=== PATIENT | female | born 1965 | race Caucasian/White ===

== ENCOUNTER → 2016-09-06 | Outpatient (CLI) | payer BC ==
[~2016-09-06] MED LIST: CELEXA40 MG PO; CLIMARA0.05 MG TRANS; DELTASONE20 MG PO; PREDNISONE10 MG PO; THERAGRAN-M1 TAB PO; TRANSDERM-SCOP1 EACH TRANS; TRIAMTERENE-HC1 EAC1 PO; VALIUM5 MG PO; ZESTRIL40 MG PO; ZOFRAN4 MG PO
[2016-09-06 17:33] LABS: CREATININE 0.9 mg/dL (0.5-1.1)
== END | disposition disaster alternative care site (69) ==
LOC: GLAB 16:30 → GRAD 17:30
PROVIDERS: Otolaryngology
DX: R42 Dizziness and giddiness (principal); G93.9 Disorder of brain, unspecified
CPT/HCPCS: A9577

== ENCOUNTER 2016-09-09 11:40 | Observation (INO) | payer BC ==
[~2016-09-09] VITALS: Ht 162.6 cm; Wt 119.9 kg
--- NOTE | ~2016-09-09 | DS ---
PATIENT'S NAME: CORIN MAYEN [facility] AGE: 51 Y [address] ROOM: [address] [address] [place] [facility] [place]: 09/09/2016 Discharge Summary DISCHARGE DATE: 09/11/2016 FAMILY PHYSICIAN: Tomy Webb ATTENDING PHYSICIAN: Shraddha Gama REASON FOR ADMISSION: The patient presented with vertigo. She was initially seen by Neurology, and I was asked to provide coverage as attending to enable the patient stay on observation status in the hospital. TREATMENT RENDERED: The patient was seen by ENT in consultation and their impression was vertigo, vestibular neuronitis, nausea and vomiting. The patient was treated with Valium and Zofran and her vertigo improved. By the 11 of September, she was well enough for discharge to home. Arrangements have been made for her to be seen in the ENT Clinic for a more formal vestibular workup including VNG in order to more closely identify where her symptoms are coming from. FINAL/DISCHARGE DIAGNOSIS: Vestibular neuronitis. MD EFRAIN RUFFO/kerenl /[id number] CC: MD Ariadne Johnson APRN d: 09/18/16 0114 t: 09/22/16 1125, DISCHARGE SUMMARY
--- NOTE | ~2016-09-09 | CON ---
PATIENT'S NAME: MAYI MAYEN [facility] AGE: 51 Y [address] ROOM: [place] [address] [place] [facility] [place] DATE: 09/09/2016 Consultation DISCHARGE DATE: FAMILY PHYSICIAN: CLEMENTE XIE ATTENDING PHYSICIAN: Shraddha Gama DATE OF CONSULTATION: 09/09/2016 REFERRING PHYSICIAN: TAMIR PIERSON MD REASON FOR CONSULTATION: Vertigo. HISTORY OF PRESENT ILLNESS: Mayi Mayen is a 51-year-old female who has debilitating vertigo going on for about 10 days. She has seen several providers for this including Dr. Flex Stout. He started her on Dyazide, diuretic. Additionally, she has had prednisone 40 mg x4 days, Valium, and Zofran. Initially, it started with room- spinning vertigo, which was relentless and did not matter what position she was in or what she was doing. That has slowly improved, so that she is now only vertiginous when she is moving around. She continues to have some nausea and Zofran. Oral dissolving tablets have been working fairly well for her. She has had several episodes like this before, about four of them in the last 10 years, and has been hospitalized for this in the past two. She denies any hearing changes. She denies any focal neurologic weakness. Sounds to not make the vertigo worse. She denies any tinnitus or ear fullness. She does believe she carries a diagnosis of Meniere's, although she has not had any formal testing for this. PAST MEDICAL HISTORY: Significant for hypertension, depression, and Meniere's. MEDICATIONS: 1. Citalopram. 2. Estradiol patch. 3. Lisinopril. 4. Multivitamin. 5. Zofran. 6. Dyazide. PAST SURGICAL HISTORY: None. ALLERGIES: NO KNOWN DRUG ALLERGIES. PATIENT'S NAME: MAYI MAYEN [facility] AGE: 51 Y [address] ROOM: [place] [address] [place] [facility] [place] DATE: 09/09/2016 Consultation DISCHARGE DATE: FAMILY PHYSICIAN: CLEMENTE XIE ATTENDING PHYSICIAN: Shraddha Gama FAMILY HISTORY: Noncontributory. REVIEW OF SYSTEMS: A comprehensive review of systems was performed and negative except as noted per HPI. PHYSICAL EXAMINATION: GENERAL: The patient is sitting in bed, very still, no acute distress, alert and oriented x3. Mood and affect are appropriate. Voice is strong. FACE: Face is symmetric. No tenderness to palpation. No masses over the salivary glands. EYES: Pupils are equal, round, and reactive to light. Extraocular muscles are intact. She does have some rotary nystagmus on lateral gaze bilaterally. EARS: External ears are normal in appearance. External auditory canals and tympanic membranes are clear. NOSE: External nose is normal. On anterior rhinoscopy, nasal cavity is clear. MOUTH: Dentoalveolar structures are in good repair. Tongue is midline and mobile. Soft palate is symmetric. Tonsillar fossa symmetric. NECK: No cervical lymphadenopathy. Trachea is midline. Thyroid without any nodularity. NEUROLOGIC: Cranial nerves II through XII are grossly intact. She has good 4/4 strength in the upper and lower extremities. CARDIOVASCULAR: Pulses are regular. RESPIRATORY: Symmetric chest rise. No audible wheezing. REVIEW OF INVESTIGATIONS: MRI scan from Tuesday showed some white matter changes, but no masses in the cerebral pontine angle or no evidence of acute stroke. ASSESSMENT: 1. Vertigo. 2. Vestibular neuronitis. 3. Nausea and vomiting. PLAN: The patient's symptoms do not exactly fit to Meniere-type picture. Given the prolonged duration, perhaps this is a vestibular neuronitis. It seems like she is on the tail end of her symptoms and they are slowly improving. We would like to try treating her with an additional course of prednisone at a higher dose for a prolonged duration in order to decrease any inflammation around the balance nerve in the internal auditory canal. Symptomatic treatment with Valium and with Zofran are also appropriate. As she begins to feel better and is eventually discharged, we would like to see her back in our PATIENT'S NAME: MAYI MAYEN [facility] AGE: 51 Y [address] ROOM: [id number] [place], [place] [id number] [place] [facility] [place] DATE: 09/09/2016 Consultation DISCHARGE DATE: FAMILY PHYSICIAN: CLEMENTE XIE ATTENDING PHYSICIAN: Shraddha Gama clinic for a more formal vestibular workup including a VNG in order to more closely pinpoint where these symptoms are coming from. I would like to thank you for allowing us to participate in the care of this patient. Thank you for this consultation. GUILLERMINA HICKEY MD FOR TAMIR PIERSON MD JY/modl /[id number] CC: Tamir Pierson MD d: 09/09/16 2025 t: 09/17/16 1029, CONSULTATION REPORT
[2016-09-09] MEDS ORDERED: TRIAMTERENE-HC1 EAC1 PO (14:10)
[2016-09-09] MEDS ORDERED: ZOFRAN4 MG PO (14:12)
[2016-09-09] MEDS ORDERED: TRANSDERM-SCOP1 EACH TRANS (14:14)
[2016-09-09] MEDS ORDERED: CELEXA40 MG PO (14:15)
[2016-09-09] MEDS ORDERED: CLIMARA0.05 MG TRANS (14:16)
[2016-09-09] MEDS ORDERED: ZESTRIL40 MG PO (14:17)
[2016-09-09] MEDS ORDERED: THERAGRAN-M1 TAB PO (14:17)
--- NOTE | 2016-09-09 18:20 | NUR ---
Significant event: Patient is alert and oriented. VSS. on room air. IV to right posterior forearm with normal saline at 75mls/hr. Admitted for vertigo, has scoplamine patches behind ears. Is on bedrest for the night.Gentle ambulation tomarrow morning. Did have Zofran at 1745. On regular diet. Did have lunch. has hx of Meniere's disease, HTN, depression. Is currently having hypotension. Cooperative with cares.
--- NOTE | 2016-09-10 03:10 | NUR ---
Significant Event: PT AO. VSS ON RA, AFEBRILE. IVF RUNNING TO R FA. BEDREST ALL NIGHT, MAY AMBULATE GENTLY IN THE AM. TOLERATING REGULAR DIET. NO PRNs GIVEN THIS SHIFT. Follow up: CONTINUE TO MONITOR
--- NOTE | 2016-09-10 10:50 | NUR ---
Introduced self/role to patient and his Timo, they live in [facility]. Denied any barriers to going home or at home. Denied any need for DME at this point. Added my name to her marker board, will continue to follow.
--- NOTE | 2016-09-10 18:58 | NUR ---
D: Patient vital signs stable patient afebrile. Patient has continued to complain of vertigo today states that it is "slightly better" with valium. Patient has been up in room and to the bathroom with one person standby assistance. Patient has tolerated fluids and solids without difficulty.
--- NOTE | 2016-09-11 06:09 | NUR ---
Significant Event: AAOX3. REG DIET. PIV TO LFA IVF INFUSING AT 75ML/HR. 1PA WITH AMBULATION. PT REFUSED ALL ASSISTIVE DEVICES. EXCELLENT APPETITE. COOPERATIVE WITH CARES. Follow up:
[2016-09-11] MEDS ORDERED: DELTASONE20 MG PO ×2 (16:57→16:58)
[2016-09-11] MEDS ORDERED: PREDNISONE10 MG PO (17:01)
[2016-09-11] MEDS ORDERED: VALIUM5 MG PO (17:04)
--- NOTE | 2016-09-11 18:41 | NUR ---
D: PATIENT VITAL SIGNS STABLE PATIENT AFEBIRLE. PATIENT HAS BEEN UP TO BATHROOM AND UP IN ROOM WITH STANDBY ASSISTANCE. PATIENT STATES THAT SHE STILL HAS VERTIGO TODAY BUT MUCH BETTER THAN IN PAST DAYS. DISCHARGE ORDERS RECEIVED TO DISCHARGE PATIENT TO HOME WITH . I: DISCHARGE ORDERS REVIEWED WITH PATIENT AND INCLUDING MEDICATION EDUCATION. R: PATIENT AND STATE UNDERSTANDING OF INSTRUCTIONS AND DENY ANY QUESTIONS. P: CONTINUE WITH DISHCARGE ORDERED. DISMISSAL GOALS MET.
== END 2016-09-11 17:15 | disposition disaster alternative care site (69) ==
LOC: GMSU 11:40
PROVIDERS: ADMIT Neurological Surgery
DX: H81.20 Vestibular neuronitis, unspecified ear (principal); H81.09 Meniere's disease, unspecified ear; I10 Essential (primary) hypertension; F32.9 Major depressive disorder, single episode, unspecified; Z79.899 Other long term (current) drug therapy
CPT/HCPCS: G0378; G0379; J7030; J7512; Q0162